=== PATIENT | male | born 1950 | race Asian ===

== ENCOUNTER 2019-06-22 07:00 | Emergency (ER) | payer OTHER ==
[~2019-06-22] VITALS: Ht 165.1 cm; Wt 74.8 kg
[~2019-06-22 07:00] MED LIST: CEL250 PO; CYCLOSPORINE25 M2 PO; LIPITOR40 MG PO; METOCLOPRAMIDE10 MG PO
[2019-06-22 07:07] VITALS: Ht 165.1 cm; Wt 74.8 kg
[2019-06-22 07:49] LABS: PLATELET COUNT 232 x10^3mcL (130-400); RED CELL DISTRIBUTION WIDTH 14.9 % (11.5-14.5)
[2019-06-22 08:04] LABS: CALCIUM 8.9 mg/dL (8.5-10.1); CARBON DIOXIDE 26.1 mmol/L (21-32); CREATININE SERUM 1.5 mg/dL (0.7-1.3)
[2019-06-22 08:09] LABS: BILIRUBIN TOTAL 1.38 mg/dL (0.20-1.00); TOTAL PROTEIN, SERUM 7.4 g/dL (6.4-8.2)
[2019-06-22 08:11] LABS: ALBUMIN 3.3 g/dL (3.4-5.0)
[2019-06-22 08:41] VITALS: BP 118/61
== END 2019-06-22 08:51 | disposition home or self-care (01) ==
LOC: ED 07:00
PROVIDERS: Emergency Medicine
DX: R55 Syncope and collapse (principal); I10 Essential (primary) hypertension
CPT/HCPCS: 36415; Q0092

== ENCOUNTER 2019-08-15 09:48 | Inpatient (IN) | payer OTHER ==
[~2019-08-15] VITALS: Ht 165.1 cm; Wt 63.6 kg
[2019-08-15 10:26] LABS: BASOPHIL % 0.4 % (0-2); PLATELET COUNT 215 x10^3mcL (130-400)
[2019-08-15 10:30] LABS: RED CELL DISTRIBUTION WIDTH 14.6 % (11.5-14.5)
[2019-08-15 10:38] LABS: CARBON DIOXIDE 25.7 mmol/L (21-32); CHLORIDE SERUM 105 mmol/L (98-107); GFR1 > 60 mL/min; GLUCOSE SERUM 120 mg/dL (74-106); POTASSIUM SERUM 3.7 mmol/L (3.5-5.1); SODIUM SERUM 140 mmol/L (136-145)
[2019-08-15 10:41] LABS: ALKALINE PHOSPHATASE 71 U/L (46-116); ALT/SGPT 20 U/L (16-63); AST/SGOT 15 U/L (15-37); BILIRUBIN TOTAL 1.8 mg/dL (0.20-1.00)
[2019-08-15 10:42] LABS: ALBUMIN 3.1 g/dL (3.4-5.0)
[2019-08-15] MEDS ORDERED: ZYLOPRIM300 MG PO (11:27)
[2019-08-15] MEDS ORDERED: COZAAR50 M1 PO (11:28)
[2019-08-15] MEDS ORDERED: FUROSEMIDE40 MG PO (11:28)
[2019-08-15] MEDS ORDERED: LOPRESSOR HCT1 TAB PO (11:29)
[2019-08-15] MEDS ORDERED: CELLCEPT500 MG PO (11:30)
[2019-08-15] MEDS ORDERED: POTASSIUM CHLO20 ME4 PO (11:30)
[2019-08-15] MEDS ORDERED: METOPROLOL TART25 M1 PO (11:30)
[2019-08-15] MEDS ORDERED: RAYOS5 MG PO (11:31)
[2019-08-15] MEDS ORDERED: FLOMAX0.4 MG PO (11:31)
[2019-08-15 12:30] LABS: MAGNESIUM 1.7 mg/dL (1.8-2.4); PHOSPHOROUS 3.5 mg/dL (2.5-4.9)
[2019-08-15 14:13] VITALS: BP 155/86
[2019-08-15 14:24] VITALS: Ht 165.1 cm; Wt 63.6 kg
[2019-08-15 19:54] VITALS: BP 136/76
[2019-08-16 04:36] VITALS: BP 116/66
[2019-08-16 06:20] LABS: BASOPHIL % 0.3 % (0-2); PLATELET COUNT 207 x10^3mcL (130-400)
[2019-08-16 07:21] LABS: RED CELL DISTRIBUTION WIDTH 14.7 % (11.5-14.5)
[2019-08-16 07:45] VITALS: BP 130/71
[2019-08-16 07:55] LABS: CALCIUM 8.7 mg/dL (8.5-10.1); CARBON DIOXIDE 21.6 mmol/L (21-32); CHLORIDE SERUM 106 mmol/L (98-107); GFR1 > 60 mL/min; GLUCOSE SERUM 122 mg/dL (74-106); POTASSIUM SERUM 3.3 mmol/L (3.5-5.1); SODIUM SERUM 139 mmol/L (136-145)
[2019-08-16 12:23] VITALS: BP 138/70
[2019-08-16 16:51] VITALS: BP 134/72
[2019-08-16 19:34] VITALS: BP 125/65
[2019-08-17 04:56] VITALS: BP 145/76
[2019-08-17 06:53] LABS: BASOPHIL % 0.3 % (0-2); PLATELET COUNT 217 x10^3mcL (130-400)
[2019-08-17 07:03] LABS: RED CELL DISTRIBUTION WIDTH 14.6 % (11.5-14.5)
[2019-08-17 07:19] VITALS: BP 142/79
[2019-08-17 07:58] LABS: CALCIUM 8.7 mg/dL (8.5-10.1); CARBON DIOXIDE 23.3 mmol/L (21-32); CHLORIDE SERUM 108 mmol/L (98-107); CREATININE SERUM 0.9 mg/dL (0.7-1.3); GFR1 > 60 mL/min; GLUCOSE SERUM 93 mg/dL (74-106); POTASSIUM SERUM 3.5 mmol/L (3.5-5.1); SODIUM SERUM 138 mmol/L (136-145)
[2019-08-17 13:46] VITALS: BP 139/77
== END 2019-08-17 16:47 | disposition left against medical advice (07) | DRG 74 ==
LOC: ED 09:48 → DU 11:39 → MU 08-17 15:48
PROVIDERS: Emergency Medicine; ADMIT Student in an Organized Health Care Education/Training Program
DX: G90.8 Other disorders of autonomic nervous system (principal); Z94.0 Kidney transplant status; I95.9 Hypotension, unspecified; E86.0 Dehydration; E87.6 Hypokalemia; E83.42 Hypomagnesemia; E78.5 Hyperlipidemia, unspecified; Z68.24 Body mass index [BMI] 24.0-24.9, adult
CPT/HCPCS: 82962; G0378; J1885; J7030; J7515; J7517; J8597